=== PATIENT | female | born 1940 | race Caucasian/White ===

== ENCOUNTER 2016-11-19 08:15 | Day surgery (SDC) | payer MEDICARE, BC ==
[~2016-11-19] VITALS: Ht 160 cm; Wt 76.4 kg
--- NOTE | 2017-01-09 10:18 | OR ---
ADMIT: 11/19/2016 RM/LOC: [facility] MR#: [id number] [address] [id number] SERGIO MARTINEZ [address] [place] [address] Operative/Delivery Room Report SEX: F AGE: 76 : 1940 CORRECTED: 12/10/2016 1502 [address] SURGERY DATE: 11/19/2016 SURGEON: Cecil Servin MD ACCOUNT CONSULTANT: JAZIEL Jauregui PRE-PROCEDURE DIAGNOSIS: Right-sided lobular ER/AK positive breast cancer. POSTPROCEDURE DIAGNOSIS: Right-sided lobular ER/AK positive breast cancer. PROCEDURE: Right axillary sentinel lymph node biopsy with right breast wire local lumpectomy. INDICATIONS: The patient is a 76-year-old who was found on mammographic screening to have a nearly 2 cm right upper outer quadrant ER/AK positive, infiltrating lobular cancer who after preoperative counseling elected for lumpectomy and sentinel node biopsy. FINDINGS: Patient was taken to the operating room. After radiotracer injection and wire localization, she was placed on table in supine position. LMA general was induced. Patient's chest and axilla were prepped and draped in normal sterile fashion. Prior to draping and prepping, we did inject blue dye peritumoral and subareolarly for further sentinel node identification. After prepping and draping the patient, we used the gamma probe to identify high uptake in the right axilla. We made a right inferior axillary hairline incision using a #10 blade. Dissection was carried down through the subcutaneous fat and clavipectoral fascia using electrocautery. During the course of this dissection, we clearly identified blue lymphatics and this led us to a blue-colored lymph node that had high radiotracer uptake up to over 3500 which was over 10 times the background counts. There was a 2nd node that did not have high radiotracer uptake, but did appear to be a blue lymph node that was marked as sentinel lymph node #2. Both nodes were sent for histologic review. There were no further blue nodes or high radiotracer uptake within the axilla. We injected 0.5% Marcaine subdermally for postoperative analgesia, closed the wound with interrupted 3-0 Vicryl subdermal sutures and a running 4- 0 Vicryl subcuticular skin stitch. We then made a transverse, laterally located breast incision for a lumpectomy incision. Dissection was carried down through the subcutaneous fat and breast tissue using electrocautery. We did a wide lumpectomy specimen around the localization wire and around what I felt was likely to be the palpable cancer. I tried to get a nice, wide margin using cautery and we were able to stay well away from the localization wire. We continued this dissection circumferentially until we came down to the pectoral fascia. We removed the specimen, sent it for radiographic review showing the lesion in question completely removed. Hemostasis was observed and obtained ADMIT: 11/19/2016 RM/LOC: [facility] MR#: [id number] [address] [place] [id number] SERGIO MARTINEZ [address] [place] [address] Operative/Delivery Room Report SEX: F AGE: 76 : 1940 using electrocautery. We irrigated both wounds prior to closing. We again injected 0.5% Marcaine subdermally and closed the lumpectomy specimen site with interrupted 3-0 Vicryl subdermal sutures and a running 4-0 Vicryl subcuticular skin stitch. The wound was cleaned and dried and dressed. The patient tolerated the procedure without difficulty and transferred to recovery room in good condition. Rashad Camara, my physician blood bank assistant, was needed for adequate exposure and assistance with carrying out this patient's lumpectomy and right axillary sentinel node biopsy. Cecil Servin MD/ jessica JOB #: [id number] CC: Cecil Servin, Attending Physician Denisse Crabtree, Family Physician CORRECTED: 12/10/2016 1502 [address]
== END 2016-11-19 15:22 | disposition home or self-care (01) ==
LOC: SSS 08:15
PROC: 07B50ZX Excision of Right Axillary Lymphatic, Open Approach, Diagnostic (ICD-10-PCS; principal; 2016-11-19)
PROC: 0HBT0ZZ Excision of Right Breast, Open Approach (ICD-10-PCS; principal; 2016-11-19)
DX: C50.411 Malignant neoplasm of upper-outer quadrant of right female breast (principal); K21.9 Gastro-esophageal reflux disease without esophagitis; E78.00 Pure hypercholesterolemia, unspecified; Z17.0 Estrogen receptor positive status [ER+]; I10 Essential (primary) hypertension; E11.9 Type 2 diabetes mellitus without complications; Z79.899 Other long term (current) drug therapy; Z90.710 Acquired absence of both cervix and uterus; Z98.890 Other specified postprocedural states

== ENCOUNTER 2016-12-24 23:19 | Emergency (ER) | payer MEDICARE, BC ==
--- NOTE | 2016-12-31 10:17 | ER ---
ADMIT: 12/24/2016 RM/LOC: ER [facility] MR#: [id number] [address] [id number] SERGIO MARTINEZ [address] [place] [address] Emergency Room Report SEX: F AGE: 76 : 1940 DATE: 12/24/2016 HISTORY OF PRESENT ILLNESS: She had surgery today. She has right breast tube for chemotherapy. She has an appointment tomorrow at the surgery center, but today she was getting ready to go to bed, she noticed that her whole bra was soaked in blood. She has no pain of course she did have surgery today, so she does have like a 2/10 discomfort. She has had a past history of colon and breast cancer. She has a pacer, 2 stents, and right breast biopsy with right breast tubing today. PHYSICAL EXAMINATION: VITAL SIGNS: Blood pressure 141/63 with a heart rate of 77, and O2 sats 97%. GENERAL: She does not seem to be in any acute distress. She is not weak. She got good color. We did go ahead and checked the tubing, changed the dressing surrounding it and padded it well. She has an appointment tomorrow. Instructions given. CLINICAL IMPRESSION: Wound check chemotherapy side, right breast, dressing change. After the nurse manipulated the tubing and dressed up the area, she felt a little queasy and went to the bathroom and threw up, but she declines taking any medication for nausea or vomiting, and she does not want any prescription written for her. JAZIEL Valentine / Jamey Lopez MD / jessica JOB #: [id number] CC: Jamey Lopez MD, Attending Physician Cecil Servin MD, Family Physician
== END 2016-12-25 00:23 | disposition home or self-care (01) ==
LOC: ER 23:19
DX: Z48.01 Encounter for change or removal of surgical wound dressing (principal); C50.911 Malignant neoplasm of unspecified site of right female breast